=== PATIENT | female | born 1955 | race Caucasian/White ===

== ENCOUNTER 2017-01-31 11:50 | Emergency (ER) | payer OTHER ==
[~2017-01-31] VITALS: Ht 154.9 cm; Wt 127.7 kg
[~2017-01-31 11:50] MED LIST: ADVAIR 250/501 DISK IH; ALBUTEROL2.5 MG/3 M IH; AZITHROMYCIN250 MG1 PO; BENADRYL25 MG PO; CELEXA10 MG PO; CELEXA20 MG PO; CITALOPRAM HBR10 MG PO; CLONAZEPAM0.5 MG PO; DEPAKOTE ER (E250 MG PO; DEPAKOTE ER250 MG PO; DEPAKOTE250 MG PO; DIAZEPAM2 MG PO; DILAUDID2 MG PO; DIVALPROEX SOD250 MG PO; DOXYCYCLINE HY100 M3 PO; FLEXERIL10 MG PO; FLOVENT 11120 INHALA IH; FLOVENT 22120 INHALA IH; Fioricet,Esgic,Repan PO; HYCODAN SYRUP480 ML PO; HYDROCODON-ACE1 EAC7 PO; HYDROCORTISON28.4 GM TP; IMITREX50 MG PO; KLONOPIN0.5 M1 PO; MACROBID100 MG PO; Macrobid PO; NORCO 5/3251 TABLET PO; PERCOCET 5/31 TABLET PO; PREDNISONE20 MG PO; PREDNISONE50 MG PO; PREMARIN0.3 MG PO; PREMARIN0.625 MG PO; PRILOSEC OTC20 MG PO; PRILOSEC20 MG PO; PRILOSEC40 MG PO; PROVENTIL,2.5 MG/3 M IH; ROBITUSSIN AC,T10 ML PO; SIMVASTATIN40 MG PO; SINGULAIR10 MG PO; SKELAXIN800 MG PO; SPIRIVA1 INHALATI IH; TESSALON PERLE100 MG PO; THEO-24400 MG PO; THEO-DUR,THEOC200 MG PO; THEO-DUR200 MG PO; THEOCHRON200 MG PO; TYLENOL325 M1 PO; VENTOLIN HFA18 GM IH; VIBRAMYCIN100 MG PO; ZANTAC150 MG PO; ZITHROMAX Z-PA250 MG PO; ZOCOR; ZOCOR10 MG PO; ZOCOR40 MG PO; ZOFRAN ODT8 MG PO; ZOFRAN4 MG PO; [UNRECOGNIZED DRUG - SUPPLY] MC
[2017-01-31 13:02] LABS: HEMATOCRIT 43.2 % (36.0-46.0); MCH 30.4 PG (29.0-34.0); MCHC 32.6 G/DL (30.0-36.0); MCV 93.1 FL (83-99); MEAN PLAT.VOLUME 9.3 uM^3 (9.5-12.4); PLATELET COUNT 288 K/uL (156-360); RBC DIS.WIDTH-CV 12.7 % (11.8-14.6); RBC DIS.WIDTH-SD 43.5 % (39-53); RED BLOOD COUNT 4.64 M/uL (3.80-5.20); WHITE BLOOD COUNT 8.6 K/uL (4.1-10.2)
[2017-01-31 13:15] LABS: CHLORIDE 106 mEq/L (99-109); POTASSIUM 3.7 mEq/L (3.7-5.4); SODIUM 139 mEq/L (136-147)
[2017-01-31 13:16] LABS: GLUCOSE 91 mg/dL (70-99)
[2017-01-31 13:18] LABS: ANION GAP 11 MEQ/L (2-14)
[2017-01-31 13:20] LABS: GFR ESTIMATE (CALCULATED) > 59 mL/min/
[2017-01-31 13:21] LABS: UREA NITROGEN (BUN) 6 mg/dL (9-23)
[2017-01-31 13:28] LABS: TROP-I INTERPRETATION NEGATIVE; TROPONIN-I < 0.01 ng/mL (0.0-0.30)
[2017-01-31] MEDS ORDERED: ZITHROMAX Z-PA250 MG PO (14:40)
[2017-01-31] MEDS ORDERED: PREDNISONE50 MG PO (14:40)
[2017-01-31] MEDS ORDERED: PERCOCET 5/31 TABLET PO (14:40)
[2017-01-31 15:03] VITALS: BP 136/94
== END 2017-01-31 14:42 | disposition home or self-care (01) ==
LOC: EME 11:50
DX: S16.1XXA Strain of muscle, fascia and tendon at neck level, initial encounter (principal); M54.6 Pain in thoracic spine; R07.9 Chest pain, unspecified; X58.XXXA Exposure to other specified factors, initial encounter; R06.02 Shortness of breath; R11.2 Nausea with vomiting, unspecified; R19.7 Diarrhea, unspecified; J44.9 Chronic obstructive pulmonary disease, unspecified; E78.5 Hyperlipidemia, unspecified; Z88.0 Allergy status to penicillin; Z87.891 Personal history of nicotine dependence
CPT/HCPCS: 71020; 80048; 84484; 85027; 93005; 99281; 99284; J7512

== ENCOUNTER 2017-06-09 04:27 | Emergency (ER) | payer OTHER ==
[~2017-06-09] VITALS: Ht 154.9 cm; Wt 109.0 kg
[2017-06-09 05:23] LABS: HEMATOCRIT 41.8 % (36.0-46.0); MCHC 33.5 G/DL (30.0-36.0); MCV 89.5 FL (83-99); PLATELET COUNT 295 K/uL (156-360); RBC DIS.WIDTH-CV 12.5 % (11.8-14.6); RED BLOOD COUNT 4.67 M/uL (3.80-5.20); WHITE BLOOD COUNT 6.8 K/uL (4.1-10.2)
[2017-06-09 05:34] LABS: CHLORIDE 107 mEq/L (99-109); POTASSIUM 4.4 mEq/L (3.7-5.4); SODIUM 140 mEq/L (136-147)
[2017-06-09 05:36] LABS: GLUCOSE 119 mg/dL (70-99)
[2017-06-09 05:40] LABS: CREATININE 0.8 mg/dL (0.6-1.3); GFR ESTIMATE (CALCULATED) > 59 mL/min/
[2017-06-09 05:41] LABS: UREA NITROGEN (BUN) 11 mg/dL (9-23)
[2017-06-09 06:03] LABS: TROP-I INTERPRETATION NEGATIVE; TROPONIN-I < 0.01 ng/mL (0.0-0.30)
[2017-06-09 07:44] LABS: D-DIMER ELISA < 150.00 ng/mLDDU (<230)
[2017-06-09 09:04] LABS: TROP-I INTERPRETATION NEGATIVE; TROPONIN-I < 0.01 ng/mL (0.0-0.30)
[2017-06-09] MEDS ORDERED: PERCOCET 5/31 TABLET PO (09:09)
[2017-06-09 09:44] VITALS: BP 151/97
== END 2017-06-09 09:49 | disposition home or self-care (01) ==
LOC: EME 04:27
PROVIDERS: Emergency Medicine
DX: R07.89 Other chest pain (principal); J44.9 Chronic obstructive pulmonary disease, unspecified; J84.10 Pulmonary fibrosis, unspecified; K21.9 Gastro-esophageal reflux disease without esophagitis; F41.9 Anxiety disorder, unspecified; E78.5 Hyperlipidemia, unspecified; F31.9 Bipolar disorder, unspecified; Z88.5 Allergy status to narcotic agent; Z88.2 Allergy status to sulfonamides; Z88.0 Allergy status to penicillin; Z87.891 Personal history of nicotine dependence
CPT/HCPCS: 70450; 71046; 80048; 84484; 85027; 85379; 93005; 94640; 99281; 99285

== ENCOUNTER 2017-10-06 11:08 | Observation (INO) | payer OTHER ==
[~2017-10-06] VITALS: Ht 152.4 cm; Wt 125.0 kg
[2017-10-06 13:05] LABS: HEMATOCRIT 41.8 % (36.0-46.0); HEMOGLOBIN 13.8 G/DL (11.9-15.5); MCH 30.4 PG (29.0-34.0); MCV 92.1 FL (83-99); PLATELET COUNT 286 K/uL (156-360); RBC DIS.WIDTH-CV 13.1 % (11.8-14.6); RBC DIS.WIDTH-SD 44.2 % (39-53); RED BLOOD COUNT 4.54 M/uL (3.80-5.20); WHITE BLOOD COUNT 7.4 K/uL (4.1-10.2)
[2017-10-06 13:13] LABS: CHLORIDE 106 mEq/L (99-109); POTASSIUM 4.1 mEq/L (3.7-5.4); SODIUM 141 mEq/L (136-147)
[2017-10-06 13:15] LABS: GLUCOSE 83 mg/dL (70-99)
[2017-10-06 13:19] LABS: CREATININE 0.8 mg/dL (0.6-1.3); GFR ESTIMATE (CALCULATED) > 59 mL/min/
[2017-10-06 13:20] LABS: UREA NITROGEN (BUN) 12 mg/dL (9-23)
[2017-10-06 13:22] LABS: TROP-I INTERPRETATION NEGATIVE; TROPONIN-I < 0.01 ng/mL (0.0-0.30)
[2017-10-06] MEDS ORDERED: OMEPRAZOLE20 MG PO (15:04)
[2017-10-06] MEDS ORDERED: HYDROCODON-ACE1 EAC7 PO (15:05)
[2017-10-06] MEDS ORDERED: CITALOPRAM HBR20 MG PO (15:05)
[2017-10-06] MEDS ORDERED: MUPIROCIN15 GM TP (15:05)
[2017-10-06] MEDS ORDERED: RANITIDINE HCL150 MG PO (15:06)
[2017-10-06 16:58] VITALS: BP 126/87
[2017-10-06 18:57] LABS: TROP-I INTERPRETATION NEGATIVE; TROPONIN-I < 0.01 ng/mL (0.0-0.30)
[2017-10-06 19:37] VITALS: BP 131/65
[2017-10-06 20:30] VITALS: BP 114/57
[2017-10-06 21:30] LABS: APPEARANCE CLOUDY ((CLEAR)); BILIRUBIN NEGATIVE; BLOOD NEGATIVE; COLOR YELLOW ((YELLOW)); GLUCOSE (STRIP) NEGATIVE; KETONES NEGATIVE; LEUKOCYTES TRACE; NITRITE NEGATIVE; PROTEIN (STRIP) 30; SPECIFIC GRAVITY 1.025 (1.000-1.030); UROBILINOGEN 0.2 MG/DL (0.2-1.0)
[2017-10-06 21:47] LABS: BACTERIA RARE /HPF; EPITHELIAL CELLS 1+ /HPF; MUCUS 2+ /LPF; UCUL ADDED? YES
[2017-10-07] VITALS: BP 132/78
[2017-10-07 01:08] LABS: TROP-I INTERPRETATION NEGATIVE; TROPONIN-I < 0.01 ng/mL (0.0-0.30)
[2017-10-07 04:00] VITALS: BP 115/75
[2017-10-07 05:53] LABS: HEMATOCRIT 36.5 % (36.0-46.0); MCHC 32.9 G/DL (30.0-36.0); MCV 91.3 FL (83-99); PLATELET COUNT 269 K/uL (156-360); RBC DIS.WIDTH-CV 13.3 % (11.8-14.6); RBC DIS.WIDTH-SD 45.1 % (39-53); WHITE BLOOD COUNT 8.3 K/uL (4.1-10.2)
[2017-10-07 06:16] LABS: ALBUMIN 3.4 G/DL (3.2-4.8); ALKALINE PHOSPHATASE 50 IU/L (3-129); ALT (GPT) 6 IU/L (3-49); AST (GOT) 9 IU/L (2-34); CHLORIDE 105 MEQ/L (99-109); CREATININE 0.8 MG/DL (0.6-1.3); GFR ESTIMATE (CALCULATED) > 59 mL/min/; GLUCOSE 103 mg/dL (70-99); POTASSIUM 3.8 MEQ/L (3.7-5.4); SODIUM 140 MEQ/L (136-147); TOTAL BILIRUBIN 0.3 MG/DL (0.0-1.0); TOTAL PROTEIN 5.9 G/DL (6.4-8.3); UREA NITROGEN (BUN) 16 mg/dL (9-23)
[2017-10-07 07:20] VITALS: BP 121/77
[2017-10-07] MEDS ORDERED: LOVENOX40 MG/0.4 SC (10:06)
== END 2017-10-07 14:30 | disposition home or self-care (01) ==
LOC: EME 11:08 → 4SOUTH 14:28 → EDOF 14:28 → ENRESERV 14:39 → 4SOUTH 16:46 → ENPENDDIS 10-07 11:47 → 4SOUTH 10-07 14:30
PROVIDERS: Physician Assistant
DX: R07.89 Other chest pain (principal); M54.6 Pain in thoracic spine; G47.33 Obstructive sleep apnea (adult) (pediatric); F31.9 Bipolar disorder, unspecified; R19.7 Diarrhea, unspecified; J44.9 Chronic obstructive pulmonary disease, unspecified; R60.0 Localized edema; E66.01 Morbid (severe) obesity due to excess calories; K21.9 Gastro-esophageal reflux disease without esophagitis; G89.29 Other chronic pain; Z79.891 Long term (current) use of opiate analgesic; R42 Dizziness and giddiness; R20.0 Anesthesia of skin; E78.5 Hyperlipidemia, unspecified; F10.21 Alcohol dependence, in remission; Z88.5 Allergy status to narcotic agent; Z88.2 Allergy status to sulfonamides; Z88.6 Allergy status to analgesic agent; Z88.8 Allergy status to other drugs, medicaments and biological substances; Z91.041 Radiographic dye allergy status; Z88.0 Allergy status to penicillin; Z91.013 Allergy to seafood; Z87.891 Personal history of nicotine dependence
CPT/HCPCS: 70450; 71046; 71250; 80048; 80053; 81003; 84484; 85027; 87086; 87493; 93005; 93971; 94640; 94660; 94799; 99281; 99285; G0378; J1200; J1650